=== PATIENT | female | born 1980 | race Caucasian/White ===

== ENCOUNTER 2023-10-27 16:09 | Emergency (ER) | payer OTHER, SELFPAY ==
[2023-10-27 16:15] VITALS: BP 141/94; PULSE 100; TEMP 36.7; O2SAT 98; BMI 39.5
--- NOTE | 2023-10-27 16:28 | ED.WOUNDLAC1 ---
HPI - Wound/Laceration General Chief Complaint: Wound/Laceration Stated Complaint: Laceration Time Seen by Provider: 10/27/23 16:16 Source: patient Mode of arrival: walk-in Limitations: no limitations History of Present Illness HPI narrative: 43-year-old female presents to the emergency department with complaint of accidentally cutting herself. Wound located to the distal left index finger, adjacent to the nail, radial aspect. States she was cutting onions at the time of the injury. Complains that she had some difficulty in controlling the bleeding until she arrived to the emergency department. Minimal tenderness. Unsure of last tetanus shot. Patient is right-handed Quality:?Penetrating trauma Severity:?Mild Timing:?Injury occurred shortly prior to arrival, constant Context: Normal setting and activity? Modifying factors:?Pain worse with palpation Associated symptoms: As above Related Data Allergies Allergy/AdvReac Type Severity Reaction Status Date / Time No Known Drug Allergies Allergy Verified 10/27/23 16:15 Review of Systems ROS Constitutional Denies: fatigue or malaise Musculoskeletal Reports: extremity pain; Denies: extremity swelling, joint pain or limited range of motion Integumentary/Breast Reports: skin pain, skin tenderness and other (wound) Neurological Denies: numbness in extremities or weakness in extremities Endocrine Denies: fatigue Hematologic/Lymphatic Denies: easy bleeding Exam Constitutional Vital Signs, click to edit/add: Last Vital Signs Temp 98.1 F 10/27/23 16:15 Pulse 100 H 10/27/23 16:15 Resp 16 10/27/23 16:15 BP 141/94 H 10/27/23 16:15 Pulse Ox 98 10/27/23 16:15 O2 Del Method Room Air 10/27/23 16:15 Common normals: no apparent distress, oriented x3 and alert General appearance: well developed HENMT Common normals: normocephalic and head/scalp atraumatic Head and scalp: normocephalic and atraumatic Cardio Peripheral pulses: radial pulses present left 2+ Extremity Other: MS: Left index finger: She has small, 0.5 flap avulsion/laceration distal left index finger adjacent to nail, radial aspect. Bleeding currently controlled. Minimal tenderness.No tenderness to the remainder of the finger.? No swelling, ecchymosis, discoloration, crepitus, deformity, instability, warmth.? ROM full flexion extension.? Strength 5/5 Neuro Common normals: oriented x3, no focal motor deficits and no sensory deficits noted Sensorium/orientation: alert Psych Common normals: mental status grossly normal, affect normal and speech normal Speech: normal speech Course Reevaluation(s) Reevaluation #1: Wound repaired using Dermabond. See procedure note. Discussed with patient results, plan, and disposition. She is agreeable. Time: 16:25 Vital Signs Vital signs: Vital Signs Temperature 98.1 F 10/27/23 16:15 Pulse Rate 100 H 10/27/23 16:15 Respiratory Rate 16 10/27/23 16:15 Blood Pressure 141/94 H 10/27/23 16:15 Pulse Oximetry 98 10/27/23 16:15 Oxygen Delivery Method Room Air 10/27/23 16:15 Temperature 98.1 F 10/27/23 16:15 Pulse Rate 100 H 10/27/23 16:15 Respiratory Rate 16 10/27/23 16:15 Blood Pressure 141/94 H 10/27/23 16:15 Pulse Oximetry 98 10/27/23 16:15 Oxygen Delivery Method Room Air 10/27/23 16:15 MDM - Wound/Laceration MDM Narrative Medical decision making narrative: This is a pleasant 43-year-old female who presented to the emergency department with a chief complaint of injury to her left index finger. Accidentally cut it while cutting a knife shortly prior to arrival. Had some trouble controlling the bleeding until she arrived here. Complains minimal tenderness. Unsure of last tetanus shot. Patient right-handed. On arrival, afebrile, vital signs are stable. On exam, nontoxic, well-appearing patient in no apparent distress. She has flap-like, fairly superficial, less than 0.5 cm avulsion/laceration to the distal left index finger adjacent to her nail, radial aspect. Range of motion full. Neurovascularly intact. Favor superficial laceration left index finger Foreign body, deep structure involvement less likely based on history and physical exam Wound was thoroughly cleansed in the emergency department Dermabond applied Dermabond applied. Bleeding continued to be controlled Tetanus updated. Disposition ? The patient was discharged. Improved conditions Plan: Patient will be discharged to home. Condition at time of disposition: stable ? Advised to follow up with primary provider. Advised to return for any worsening and/or development of new, concerning signs or symptoms PLEASE NOTE: Portions of the medical record may have been produced using electronic security system installer and may contain errors with respect to translation of words which may not have been identified prior to finalization of the chart. Medical Records Attestation: I reviewed the patient's medical records. Discharge Plan Discharge Stand Alone Forms: Portal Instructions Chief Complaint: Wound/Laceration Clinical Impression: Finger pain, left Laceration of left index finger Qualifiers: Encounter type: initial encounter Damage to nail status: without damage Foreign body presence: without foreign body Qualified Code(s): S61.211A - Laceration without foreign body of left index finger without damage to nail, initial encounter Patient Disposition: Home, Self-Care Time of Disposition Decision: 16:34 Condition: Good Mode of Transportation: Private Vehicle Print Language: Bruneian Instructions: Skin Adhesive Care (ED) Referrals: Srinivas Knowles MD [Physician] - 1 week Procedures ED Laceration Laceration left index finger: Site: hand (left index finger) Side (if applicable): left Size (cm): 0.5 Description: flap, irregular, clean and contaminated Depth: simple, single layer Pre-repair: wound explored, irrigated extensively and deep structures intact Skin layer closed with: other (Dermabond) Additional comments: multiple passes made. Tolerated well, no complications
[2023-10-27] MEDS: ADACEL DIPH,PERTUSS(ACELL),TET VAC/PF 0.5 ML ADULT SYRINGE IM (16:43)
== END 2023-10-27 16:50 | disposition home or self-care (01) ==
PROVIDERS: Emergency Provider Emergency Medicine
DX: S61.211A Laceration without foreign body of left index finger without damage to nail, initial encounter (principal); W26.0XXA Contact with knife, initial encounter; Z23 Encounter for immunization
CPT/HCPCS: 12001; 90471; 90715; 99283

== ENCOUNTER 2024-10-07 12:32 | Emergency (ER) | payer OTHER, SELFPAY ==
[2024-10-07 12:35] VITALS: BP 148/86; PULSE 94; TEMP 37.2; O2SAT 97; BMI 36.5
--- NOTE | 2024-10-07 12:49 | XR_ITS ---
The [address] [address] Patient Name: BONILLA FINN MRN: [id number] date: 1980 Sex: F Assigned Patient Location: ER Current Patient Location: ER Accession/Order Number: [id number] Exam Date: 10/07/2024 13:30 Report Date: 10/07/2024 13:31 At the request of: KONSTANTIN MEADOWS MD Procedure: XR shoulder RT min 2V RIGHT SHOULDER - - 3 views CLINICAL HISTORY: Pain, hit on door frame COMPARISON: None FINDINGS: No fracture or dislocation. Joint spaces preserved. No significant degenerative change. Right lung apex is clear XR/XR shoulder RT min 2V IMPRESSION: No acute bony process. Impression dictated by: Nikhil Mcdowell M.D. 10/07/2024 1:31 PM Dictation Location: [place] [address] Electronically authenticated by: [id number] Y Date: 10/07/2024 13:31
--- NOTE | 2024-10-07 12:50 | ED.GENADUL1 ---
HPI HPI - General Adult General Chief complaint: Extremity Injury, Upper Stated complaint: R SHOULDER PAIN Time Seen by Provider: 10/07/24 12:33 Source: patient Mode of arrival: walk-in Limitations: no limitations History of Present Illness HPI narrative: 43-year-old female presents to the emergency department for a chief complaint of right shoulder pain. She states yesterday she ran into a door frame with the anterior part of the shoulder. It still hurts. No other injury was sustained. No weakness or numbness in her hand. It hurts more to move it and the pain is moderate to severe. Related Data Previous Rx's ?Medication ?Instructions ?Recorded ibuprofen 800 mg tablet 800 mg PO Q8H PRN pain #20 tabs 10/07/24 Allergies Allergy/AdvReac Type Severity Reaction Status Date / Time No Known Drug Allergies Allergy Verified 10/07/24 12:35 Opioid HPI Opioid Management Most Recent Opioid Data: Last Pain Scale 10 Today, 12:35 Review of Systems ROS Narrative A ten point review of systems is negative except as noted above. PFSH PFSH Social History Little interest or pleasure in doing things: not at all Feeling down, depressed, or hopeless: not at all Exam Narrative Exam Narrative: Nurses note and vital signs reviewed and patient is not hypoxic. General: The patient appears well and in no apparent distress. Skin: Warm, dry, no pallor noted. There is no rash noted. Head: Normocephalic, atraumatic Eye: Normal conjunctiva, no drainage Ears, Nose, Mouth, and Throat: oral mucosa is moist. Nares patent. Cardiovascular: Regular Rate and Rhythm Respiratory: Patient is in no distress, no accessory muscle use, lungs are clear to auscultation, no wheezing, rales or rhonchi Back: non-tender GI: Soft and nontender Musculoskeletal: The right shoulder is examined. There is no bruise or abrasion. She has diffuse tenderness anteriorly. The right elbow and wrist are nontender and the radial pulse is 2+. She has limited range of motion of the shoulder because of discomfort. Neurological: A&O, normal speech Psychiatric: Cooperative Constitutional Vital Signs, click to edit/add: Last Vital Signs Temp 98.9 F 10/07/24 12:35 Pulse 94 H 10/07/24 12:35 Resp 20 10/07/24 12:35 BP 148/86 H 10/07/24 12:35 Pulse Ox 97 10/07/24 12:35 O2 Del Method Room Air 10/07/24 12:35 Course Vital Signs Vital signs: Vital Signs Temperature 98.9 F 10/07/24 12:35 Pulse Rate 94 H 10/07/24 12:35 Respiratory Rate 20 10/07/24 12:35 Blood Pressure 148/86 H 10/07/24 12:35 Pulse Oximetry 97 10/07/24 12:35 Oxygen Delivery Method Room Air 10/07/24 12:35 Temperature 98.9 F 10/07/24 12:35 Pulse Rate 94 H 10/07/24 12:35 Respiratory Rate 20 10/07/24 12:35 Blood Pressure 148/86 H 10/07/24 12:35 Pulse Oximetry 97 10/07/24 12:35 Oxygen Delivery Method Room Air 10/07/24 12:35 Medical Decision Making MDM Narrative Medical decision making narrative: X-rays per radiologist showed no acute findings. Sling applied, application checked by me and found to be appropriate, she is neurovascularly intact. She was prescribed ibuprofen and referred to orthopedics. Treatment diagnosis and follow-up were discussed with the patient. Differential Diagnosis Differential Diagnosis: Contusion, fracture, rotator cuff injury Imaging Data Right shoulder x-ray: Radiologist's impression: ITS Impressions Shoulder X-Ray 10/07/24 12:49 IMPRESSION: No acute bony process. Impression dictated by: Nikhil Mcdowell M.D. 10/07/2024 1:31 PM Dictation Location: [place] [address] Electronically authenticated by: [id number] Y Date: 10/07/2024 13:31 Discharge Plan Discharge Chief Complaint: Extremity Injury, Upper Clinical Impression: Contusion of right shoulder Patient Disposition: Home, Self-Care Time of Disposition Decision: 14:14 Condition: Good Mode of Transportation: Private Vehicle Prescriptions / Home Meds: New ibuprofen 800 mg tablet 800 mg PO Q8H PRN (Reason: pain) Qty: 20 0RF Print Language: Singaporean Instructions: Contusion in Adults (ED), Shoulder Pain (ED) Referrals: Physician,Non-Staff, MD [Primary Care Provider] - 1 week ERON RICCI [Referring] - 1 week
== END 2024-10-07 14:38 | disposition home or self-care (01) ==
PROVIDERS: Emergency Provider Emergency Medicine
DX: S40.011A Contusion of right shoulder, initial encounter (principal); W22.01XA Walked into wall, initial encounter
CPT/HCPCS: 73030; 99283